=== PATIENT | female | born 1940 | race African-American/Black ===

== ENCOUNTER 2022-08-21 17:34 | Inpatient (IN) | payer MEDICARE ==
[~2022-08-21] VITALS: Ht 165.1 cm; Wt 88.9 kg
[2022-08-21 20:06] LABS: BASOPHILS % 0.5 % (0.0-2.0); EOSINOPHILS % 2.9 % (0.0-5.0); HEMATOCRIT. 30.1 % (36.0-48.0); HEMOGLOBIN. 9.8 g/dL (12.0-16.0); LYMPHOCYTES % 21.4 % (20.0-50.0); MEAN CORPUSCULAR VOLUME 98.4 fL (81.0-99.0); MEAN PLATELET VOLUME 9.1 fl (7.4-10.4); MONOCYTES % 10.1 % (2.0-8.0); NEUTROPHILS % 65.1 % (40.0-76.0); PLATELET 169 x1000/uL (130-400); RED BLOOD CELL COUNT 3.06 mill/uL (4.2-5.4); RED CELL DISTRIBUTION WIDTH 15.9 % (11.6-14.6)
[2022-08-21 21:11] LABS: CHLORIDE 100 mEq/L (98-107)
[2022-08-21] MEDS ORDERED: ONDANSETRON HCL 4MG/2ML INJ IV PRN (23:30)
[2022-08-21] MEDS ORDERED: CLONIDINE 0.1MG TABLET PO PRN (23:30)
[2022-08-21] MEDS ORDERED: MORPHINE SULFATE 2 MG/ML CPJ (NOT FOR IM USE) IV PRN (23:30)
[2022-08-21] MEDS ORDERED: ACETAMINOPHEN 325MG TABLET PO PRN (23:30)
[2022-08-21] MEDS ORDERED: IPRATROPIUM/ALBUTEROL 0.5-3(2.5)MG/3ML NEB HHN PRN (23:30)
[2022-08-21] MEDS ORDERED: DIPHENHYDRAMINE 50MG/ML VIAL IV PRN (23:30)
[2022-08-22 05:45] LABS: BASOPHILS % 0.5 % (0.0-2.0); EOSINOPHILS % 3.1 % (0.0-5.0); HEMATOCRIT. 30.3 % (36.0-48.0); HEMOGLOBIN. 10.1 g/dL (12.0-16.0); LYMPHOCYTES % 31.8 % (20.0-50.0); MEAN CORPUSCULAR HEMOGLOBIN 32.2 pg (28.0-32.0); MEAN CORPUSCULAR VOLUME 97.1 fL (81.0-99.0); MEAN PLATELET VOLUME 8.7 fl (7.4-10.4); MONOCYTES % 10.3 % (2.0-8.0); NEUTROPHILS % 54.3 % (40.0-76.0); PLATELET 170 x1000/uL (130-400); RED BLOOD CELL COUNT 3.12 mill/uL (4.2-5.4); RED CELL DISTRIBUTION WIDTH 15.9 % (11.6-14.6)
[2022-08-22 06:59] LABS: CHLORIDE 105 mEq/L (98-107)
[2022-08-22] MEDS: ENOXAPARIN 30MG/0.3ML SYR SUBCUT SCH (09:00)
[2022-08-22] MEDS: AMLODIPINE 5MG TABLET PO SCH ×2 (11:30→21:09)
[2022-08-22] MEDS: METOPROLOL TARTRATE 50MG TABLET PO SCH ×2 (11:30→21:10)
[2022-08-22] MEDS ORDERED: POTASSIUM CHLORIDE 20MEQ TABLET SR PO NR (11:30)
[2022-08-22] MEDS ORDERED: NALOXONE HCL 0.4MG/ML VIAL IV PRN (17:00)
[2022-08-22 18:09] VITALS: BP 150/68
[2022-08-22 20:00] VITALS: BP 165/87
[2022-08-22 23:58] VITALS: BP 151/81
[2022-08-23 04:00] VITALS: BP 150/74
[2022-08-23 06:22] LABS: BASOPHILS % 0.6 % (0.0-2.0); EOSINOPHILS % 2.8 % (0.0-5.0); HEMATOCRIT. 31.5 % (36.0-48.0); HEMOGLOBIN. 10.4 g/dL (12.0-16.0); MEAN CORPUSCULAR HEMOGLOBIN 32.2 pg (28.0-32.0); MEAN CORPUSCULAR VOLUME 97.2 fL (81.0-99.0); MEAN PLATELET VOLUME 9.1 fl (7.4-10.4); MONOCYTES % 11.9 % (2.0-8.0); NEUTROPHILS % 54.7 % (40.0-76.0); PLATELET 174 x1000/uL (130-400); RED BLOOD CELL COUNT 3.24 mill/uL (4.2-5.4); RED CELL DISTRIBUTION WIDTH 15.9 % (11.6-14.6)
[2022-08-23] MEDS ORDERED: PROT20 MT (06:48)
[2022-08-23] MEDS ORDERED: CHOL400T31 (06:48)
[2022-08-23] MEDS ORDERED: UBID10CA4 MT (06:48)
[2022-08-23] MEDS ORDERED: LORA-249 MT (06:48)
[2022-08-23] MEDS ORDERED: FOLI-43 MT (06:48)
[2022-08-23] MEDS ORDERED: POTA-205 MT (06:48)
[2022-08-23] MEDS ORDERED: NIFE-33 MT (06:48)
[2022-08-23] MEDS ORDERED: CARV25TA47 MT (06:48)
[2022-08-23] MEDS ORDERED: HYDR-4135 MT (06:48)
[2022-08-23] MEDS ORDERED: CLON0.3T MT (06:48)
[2022-08-23] MEDS ORDERED: CLON0.2T MT (06:48)
[2022-08-23] MEDS ORDERED: FURO80TA3 MT (06:48)
[2022-08-23] MEDS ORDERED: ISOS1TAB2 MT (06:48)
[2022-08-23] MEDS ORDERED: FOLI0.4T6 MT (06:48)
[2022-08-23 08:00] VITALS: BP 129/64
[2022-08-23] MEDS: METOPROLOL TARTRATE 50MG TABLET PO SCH (08:18)
[2022-08-23] MEDS: AMLODIPINE 5MG TABLET PO SCH (08:18)
[2022-08-23] MEDS: ENOXAPARIN 30MG/0.3ML SYR SUBCUT SCH (08:19)
[2022-08-23 12:00] VITALS: BP 143/71
[2022-08-23] MEDS ORDERED: HYDRALAZINE HCL 50MG TABLET PO SCH (14:00)
[2022-08-23 14:58] VITALS: BP 143/86
[2022-08-23 16:00] VITALS: BP 161/77
== END 2022-08-23 19:25 | disposition home or self-care (01) | DRG 206 ==
LOC: ER 17:34 → MICUSO 23:16 → 3WST 08-22 16:52
PROVIDERS: ADMIT Family Medicine Adult Medicine; ATTEND Family Medicine Adult Medicine
DX: M94.0 Chondrocostal junction syndrome [Tietze] (principal); I13.0 Hypertensive heart and chronic kidney disease with heart failure and stage 1 through stage 4 chronic kidney disease, or unspecified chronic kidney disease; I82.512 Chronic embolism and thrombosis of left femoral vein; I95.9 Hypotension, unspecified; R00.0 Tachycardia, unspecified; N18.9 Chronic kidney disease, unspecified; I50.9 Heart failure, unspecified; E11.22 Type 2 diabetes mellitus with diabetic chronic kidney disease; Z86.711 Personal history of pulmonary embolism; Z95.828 Presence of other vascular implants and grafts; Z91.041 Radiographic dye allergy status
CPT/HCPCS: 36415; 71045; 80048; 80053; 83735; 83880; 84484; 85025; 93005; 93306; 93970; 99285; J1650